=== PATIENT | female | born 1985 | race Caucasian/White ===

== ENCOUNTER 2018-09-27 11:19 | Inpatient (IN) | payer BC ==
[~2018-09-27] VITALS: Ht 170.2 cm; Wt 85.7 kg
[~2018-09-27 11:19] MED LIST: IBUPROFEN 800800 M1 PO; PRENATAL; SYNTHROID75 MCG PO; TAMSULOSIN HCL0.4 MG PO; VICODIN 5-5001 EACH PO; VICODIN ES TAB1 EACH PO
[2018-09-27 11:34] VITALS: BP 125/93
[2018-09-27] MEDS ORDERED: MACRODANTIN100 MG PO (11:38)
[2018-09-27 12:07] LABS: HEMOGLOBIN 12.8 gm/dL (12.0-15.0); MCH 28.1 pg (26.0-34.0); MCHC 34.7 g/dL (28.0-37.0); MPV 8.1 fl. (7.2-11.1); NUCLEATED RBCS 0 /100WBC; PLATELET COUNT* 217 thou/uL (150-400); RBC 4.57 mil/uL (4.20-5.00); RDW-CV 13.2 % (10.5-14.5); WBC 9.9 thou/uL (4.0-11.0)
[2018-09-27 12:12] LABS: CALCIUM 8.9 mg/dL (8.5-10.1); CREATININE 1.1 mg/dL (0.6-1.3)
[2018-09-27 12:16] LABS: ALBUMIN 3.3 g/dL (3.4-5.0); TOTAL BILIRUBIN 0.4 mg/dL (<0.1-1.0); TOTAL PROTEIN 8.1 g/dL (6.4-8.2)
[2018-09-27 12:18] LABS: URINE BILIRUBIN NEGATIVE (Negative); URINE BLOOD 1+ (Negative); URINE CLARITY CLEAR; URINE COLOR YELLOW; URINE GLUCOSE-RANDOM NEGATIVE (Negative); URINE KETONES NEGATIVE (Negative); URINE LEUKOCYTES-REFLEX NEGATIVE (Negative); URINE NITRITE-REFLEX NEGATIVE (Negative); URINE PROTEIN 2+ (Negative); URINE SPECIFIC GRAVITY >= 1.030 (1.005-1.030); URINE UROBILINOGEN 0.2 E.U./dl (0.2-1.0)
[2018-09-27 12:36] LABS: BACTERIA-REFLEX 1-9 Few /HPF (None Seen); CASTS None Seen /LPF (None Seen); CRYSTALS None Seen /LPF (None Seen); MUCUS None Seen strn/LPF (None Seen); SQUAMOUS 4-10 Moderate /LPF (0-3); URINE RBC 3-10 Few /HPF (0-2); URINE WBC-REFLEX 0-5 Rare /HPF (0-5)
[2018-09-27 12:58] LABS: ABSOLUTE LYMPHOCYTES 0.6 thou/uL (0.8-5.3); ABSOLUTE MONOCYTES 0.1 thou/uL (0.0-1.2); ABSOLUTE NEUTROPHILS 9.2 thou/uL (1.6-8.1); PLATELET ESTIMATE ADEQUATE
[2018-09-27 16:49] VITALS: BP 112/72
[2018-09-27 18:35] VITALS: BP 103/64
[2018-09-27 20:00] VITALS: BP 94/59
--- NOTE | 2018-09-28 05:16 | NUR ---
ASSUMED CARE OF PT AFTER REPORT AT 1930. PT A&OX4. VSS. PHYSICAL ASSESSMENT COMPLETED AND CHARTED. PT ON RA. PT UPSTANDBY TO RESTROOM. PT COMPLAINED OF HEADACHE & RIGHT FLANK PAIN- PAIN MEDS GIVEN PER JUL. MAINTAINED ON CLEAR LIQUID DIET. NO EPISODE OF NAUSEA OR VOMITING. HOURLY ROUNDING OBSERVED. CALL LIGHT WITHIN REACH.
[2018-09-28 07:45] VITALS: BP 116/78
[2018-09-28 15:30] VITALS: BP 128/87
--- NOTE | 2018-09-28 16:13 | NUR ---
PATIENT ALERT AND ORIENTED X 4. VITAL SIGNS STABLE ON ROOM AIR. AFEBRILE. UP AD SUBHASH IN ROOM. IV PATENT AND SALINE LOCKED. PAIN AND NAUSEA BEING MANAGED WITH IV MEDICATION. NO STONE PASSED THIS SHIFT. HOURLY ROUNDS MAINTAINED THROUGHOUT THE SHIFT. CALL LIGHT WITHIN REACH. NURSING WILL CONTINUE TO MONITOR.
[2018-09-28 20:45] VITALS: BP 124/73
[2018-09-29] VITALS: BP 123/78
[2018-09-29 05:10] VITALS: BP 120/86
--- NOTE | 2018-09-29 05:52 | NUR ---
Alert and oriented x 4. She has been having rt flank pain and a migraine headache. She is using ice for her headache and that is helping. She has had alot of urine output and it has been strained, no stones have been observed, urine is very light yellow and clear. She was febrile at start of shift 101.5, Dr Badillo notified and tylenol order recieved. Vitals have been stable and she is afebrile at this time. She has had dilaudid x 2 this shift. She has slept intermittenly.
[2018-09-29 09:00] VITALS: BP 125/91
[2018-09-29 13:48] LABS: ABSOLUTE EOSINOPHILS 0.1 thou/uL (0.0-0.7); ABSOLUTE LYMPHOCYTES 0.9 thou/uL (0.8-5.3); ABSOLUTE MONOCYTES 0.6 thou/uL (0.0-1.2); ABSOLUTE NEUTROPHILS 4.1 thou/uL (1.6-8.1); BASOPHILS 0.4 %; EOSINOPHILS 0.9 %; HEMATOCRIT 31.6 % (37.0-47.0); HEMOGLOBIN 10.9 gm/dL (12.0-15.0); LYMPHOCYTES 15.1 %; MCH 27.8 pg (26.0-34.0); MCHC 34.4 g/dL (28.0-37.0); MCV 80.6 fL (80.0-100.0); MONOCYTES 10.5 %; MPV 7.6 fl. (7.2-11.1); NUCLEATED RBCS 0 /100WBC; PLATELET COUNT* 238 thou/uL (150-400); POLYS 73.1 %; RBC 3.92 mil/uL (4.20-5.00); RDW-CV 13.4 % (10.5-14.5); WBC 5.6 thou/uL (4.0-11.0)
[2018-09-29 14:18] LABS: ALBUMIN 2.8 g/dL (3.4-5.0); CALCIUM 8.1 mg/dL (8.5-10.1); CREATININE 0.8 mg/dL (0.6-1.3); POTASSIUM 3.8 mmol/L (3.5-5.1); TOTAL BILIRUBIN 0.2 mg/dL (<0.1-1.0); TOTAL PROTEIN 6.4 g/dL (6.4-8.2)
[2018-09-29 17:00] VITALS: BP 135/85
--- NOTE | 2018-09-29 18:20 | NUR ---
ALERT AND ORIENTED X4. UP WITH STAND BY ASSIST TO BATHROOM. USING IV PAIN MEDICATION TO HELP WITH HEADACHE AND RIGHT FLANK PAIN. STRAINING ALL URINE. URINE CLEAR YELLOW IN COLOR. REMAINS ON CLEAR LIQUID DIET. TYLENOL GIVEN FOR TEMPATURE OF 99 DEGREES THIS EVENING. WILL CONTINUE TO MONITOR. CONTINUES ON IV ANTIBIODICS.
[2018-09-29 20:00] VITALS: BP 124/81
[2018-09-30 00:30] VITALS: BP 114/73
[2018-09-30 03:30] VITALS: BP 140/84
--- NOTE | 2018-09-30 04:39 | NUR ---
Alert and oriented x 4. She has been up with stand by assist to the bathroom. She had a low grade temp x 2 this shift, she's had tylenol x 2 this shift. She states she is feeling slightly better. She had IV dilaudid x 3 this shift. She has had scheduled zofran for nausea. She has slept well.
[2018-09-30 07:40] VITALS: BP 148/94
[2018-09-30 17:11] VITALS: BP 126/82
--- NOTE | 2018-09-30 17:27 | NUR ---
PT REMAINED ALERT AND ORIENTED. PT RSTIN IN ROOM. PT C/O HEADACHE, MEDS GIVEN ORDERED. PT IV WENT BACK NEW IV PLACED IN LT FA. IV FLUIDS RUNNING. PT REGULAR DIET AND TOLERATING. FALL RISK PRECAUTIONS IN PLACE. HOURLY ROUNDING COMPLETED. WILL CONTINUE TO MONITOR.
[2018-10-01] VITALS: BP 132/91
--- NOTE | 2018-10-01 07:13 | NUR ---
PT ALERT AND ORIENTED. VSS ON RA. NEW IV STARTED ON PT. NSGOING @ 150ML/HR. PT REFUSED 5AM ZOFRAN SHE DENIES N/V. HEADACHE MED GIVEN X1 THIS SHIFT. RELIEF NOTED. PT SLEPT MOST OF SHIFT. BED IN LOW POSITION. CALL LIGHT WITHIN REACH. HOURLY ROUNDINGS MADE. URINE STRAINED BY PT. WILL CONTINUE TO MONITOR.
[2018-10-01 07:15] VITALS: BP 130/89
[2018-10-01 09:28] VITALS: BP 130/89
[2018-10-01 09:30] VITALS: BP 130/89
[2018-10-01] MEDS ORDERED: KEFLEX500 M1 PO (11:17)
[2018-10-01 11:29] VITALS: BP 130/89
--- NOTE | 2018-10-01 11:29 | NUR ---
PT GIVEN DISCHARGE INFORMATION, CARE NOTES, AND PRESCRIPTIONS. IV REMOVED. PT BELONGINGS GATHERED. PT LEFT AMBULATORY WITH NURSING STAFF TO HOME. FALL RISK PRECAUTIONS IN PLACE. HOURLY ROUNDING COMPLETED.
== END 2018-10-01 11:54 | disposition home or self-care (01) | DRG 690 ==
LOC: M.ERS 11:19 → M.TBA-ER 13:58 → M.3W 16:52
PROVIDERS: Nurse Practitioner Family; Urology; ADMIT Internal Medicine
DX: N13.6 Pyonephrosis (principal); N20.0 Calculus of kidney; G43.909 Migraine, unspecified, not intractable, without status migrainosus; Z79.1 Long term (current) use of non-steroidal anti-inflammatories (NSAID); Z79.899 Other long term (current) drug therapy